=== PATIENT | female | born 1970 | race Caucasian/White ===

== ENCOUNTER → 2017-07-01 | Outpatient (CLI) | payer BC ==
--- NOTE | 2017-07-01 11:47 | MR ---
EXAMINATION TYPE: MR knee LT wo con DATE OF EXAM: 07/01/2017 COMPARISON: NONE HISTORY: Left knee pain TECHNIQUE: Multiplanar, multisequence imaging of the left knee is performed without IV contrast. FINDINGS: MEDIAL MENISCUS: Linear tear posterior horn medial meniscus LATERAL MENISCUS: Anterior and posterior horns are intact without tear. CRUCIATE LIGAMENTS: The anterior and posterior cruciate ligaments are intact and unremarkable. COLLATERAL LIGAMENTS: The medial collateral ligament and lateral collateral ligament complex are inta ct and unremarkable. EXTENSOR MECHANISM: Visualized quadriceps and patellar tendons are intact. EFFUSION: No significant suprapatellar joint effusion. POPLITEAL CYST: There is a 1 x 0.8 x 3.4 cm popliteal fossa cyst. TRICOMPARTMENT SPACES: Joint spaces preserved. Cartilage preserved. BONE MARROW SIGNAL: No focal abnormal marrow signal is appreciated. IMPRESSION: 1. Posterior horn medial meniscal tear 2. 1 x 3.4 cm popliteal fossa cyst
== END | disposition home or self-care (01) ==
LOC: RADMRIMAIN 10:41
PROVIDERS: ATTEND Orthopaedic Surgery
DX: S83.242A Other tear of medial meniscus, current injury, left knee, initial encounter (principal); M71.22 Synovial cyst of popliteal space [Baker], left knee

== ENCOUNTER → 2017-09-17 | Outpatient (CLI) | payer BC ==
--- NOTE | 2017-09-23 13:02 | MM ---
Reason for exam: screening (asymptomatic). Last mammogram was performed 1 year and 1 month ago. History: Patient is postmenopausal and has history of other cancer at age 41. Family history of breast cancer in maternal aunt at age 64. Benign excisional biopsy of the left breast, 1987. Benign excisional biopsy of the left breast, 1986. Physical Findings: A clinical breast exam by your physician is recommended on an annual basis and results should be correlated with mammographic findings. MG 3D Screening Mammo W/Cad Bilateral CC and MLO view(s) were taken. Prior study comparison: August 17, 2016, bilateral MG 3d screening mammo w/cad. August 15, 2015, bilateral MG 3d screening mammo w/cad. The breast tissue is heterogeneously dense. This may lower the sensitivity of mammography. No significant changes when compared with prior studies. ASSESSMENT: Negative, BI-RAD 1 RECOMMENDATION: Routine screening mammogram of both breasts in 1 year.
== END | disposition home or self-care (01) ==
LOC: RADMAMWWP 15:40
PROVIDERS: ATTEND Family Medicine
DX: Z12.31 Encounter for screening mammogram for malignant neoplasm of breast (principal)
CPT/HCPCS: 77063; G0202

== ENCOUNTER → 2017-10-02 | Outpatient (CLI) | payer BC ==
[2017-10-02 11:26] LABS: Basophils % (A) 1 %; Eosinophils # (A) 0.1 k/uL (0-0.7); Eosinophils % (A) 2 %; HCT 38.9 % (34.0-46.0); HGB 11.8 gm/dL (11.4-16.0); Hypochromasia Slight; Lymphocytes # (A) 1.3 k/uL (1.0-4.8); Lymphocytes % (A) 42 %; MCH 29.2 pg (25.0-35.0); MCHC 30.2 g/dL (31.0-37.0); MCV 96.6 fL (80.0-100.0); Mean Platelet Volume 8.2; Monocytes # (A) 0.2 k/uL (0-1.0); Monocytes % (A) 7 %; Neutrophils # (A) 1.4 k/uL (1.3-7.7); Neutrophils % (A) 46 %; Platelet Count 295 k/uL (150-450); RBC 4.03 m/uL (3.80-5.40); RDW 15.1 % (11.5-15.5); WBC 3.2 k/uL (3.8-10.6)
[2017-10-02 11:33] LABS: Potassium 4.4 mmol/L (3.5-5.1)
== END | disposition home or self-care (01) ==
LOC: LABPAT 10:41
PROVIDERS: ATTEND Orthopaedic Surgery
DX: Z01.812 Encounter for preprocedural laboratory examination (principal); M23.92 Unspecified internal derangement of left knee
CPT/HCPCS: 36415; 80051; 85025

== ENCOUNTER 2017-10-06 08:29 | Day surgery (SDC) | payer BC ==
[2017-09-29 22:57] VITALS: BMI 18.1
--- NOTE | 2017-10-05 11:35 | HP ---
HISTORY AND PHYSICAL REASON FOR ADMISSION: Surgery is scheduled for 10/06/2017 HISTORY OF PRESENT ILLNESS: Radha Canela is a 47-year-old patient seen with progressive left knee pain. We discussed options regarding treatment. She elected to proceed with arthroscopy. Consent regarding procedure was obtained. PAST MEDICAL HISTORY: Noncontributory. PAST SURGICAL HISTORY: D and C, tubal ligation, herniorrhaphy, bladder suspension surgery. DAILY MEDICATIONS: Aleve. ALLERGIES: IBUPROFEN. IODINE. SOCIAL HISTORY: Patient denies current tobacco use. PHYSICAL EXAMINATION: Evaluation of left knee range of motion is -2/3 to 120 degrees. Mild intra-articular effusion. Tenderness along the medial joint line. Positive medial Leydi's. Crepitus along the patellofemoral compartment. Range of motion. Ligaments stable. Hip rotation without pain. Distal neurovascular exam intact. RADIOGRAPHS: Radiographs of the left knee revealed mild osteoarthritis. MRI of the left knee revealed medial meniscal tear. IMPRESSION: Internal derangement, left knee with medial meniscal tear. PLAN: Left knee arthroscopy with partial meniscectomy and debridement. MMODL / IJN: [id number] /
[~2017-10-06 08:29] MED LIST: DEXAMETHASONE SOD PHOSPHATE 10 MG/ML 1 ML VIAL IV ONE; HYDROmorphone 0.5 MG/0.5 ML SYRINGE IVP PRN; LACTATED RINGERS 1,000 ML IV SCH; MIDAZOLAM 2 MG/2 ML VIAL IV PRN; ONDANSETRON 4 MG/2 ML VIAL IVP ONE; ceFAZolin 1,000 MG in DEXTROSE/WATER 1 50ML.BAG IV ONE
[2017-10-06] MEDS ORDERED: LIDOCAINE 1% 20 ML VIAL (10MG/ML) FOR IV START INTRADERMA ONE (08:58)
[2017-10-06] MEDS ORDERED: MIDAZOLAM 2 MG/2 ML VIAL ONE (09:48)
[2017-10-06] MEDS ORDERED: PROPOFOL 10 MG/ML 20 ML VIAL IV ONE (09:48)
[2017-10-06] MEDS ORDERED: LIDOCAINE 1% INJ 10MG/ML (20 ML MDV) ONE (09:48)
[2017-10-06] MEDS ORDERED: fentaNYL (PF) 50 MCG/ML 2 ML AMP ONE (09:48)
[2017-10-06] MEDS ORDERED: BUPIVACAINE (PF) 0.25% 30 ML VIAL INTRAARTIC ONE (09:48)
--- NOTE | 2017-10-06 10:44 | P.OP ---
Date of Procedure: 10/06/17 Preoperative Diagnosis: Internal derangement left knee Postoperative Diagnosis: 1. Tear medial and lateral meniscus left knee 2. Grade 2/3 chondromalacia medial femoral condyle left knee 3. Medial plica left knee 4. Reactive synovitis medial and suprapatellar compartments left knee Procedure(s) Performed: 1. Arthroscopic partial medial and lateral meniscectomy left knee 2. Arthroscopic chondroplasty medial femoral condyle left knee 3. Arthroscopic resection medial plica left knee 4. Arthroscopic partial synovectomy medial and suprapatellar compartments left knee Anesthesia: MIANA, local Surgeon: Lyndon Villeda Estimated Blood Loss (ml): 10 Pathology: none sent Condition: stable Disposition: PACU Indications for Procedure: 47-year-old patient seen with progressive left knee pain. After treatment options were discussed, she elected to proceed with arthroscopy. Operative Findings: See description of procedure Description of Procedure: Patient was taken to the operative suite. Patient underwent a general anesthetic by the department of anesthesia. Patient was given preoperative antibiotics. The left lower extremity was placed in a well-padded arthroscopic leg reyes. The left leg was prepped and draped in the normal sterile orthopedic fashion. A lateral parapatellar and suprapatellar incision was made. Trochars were inserted. Arthroscopy was initiated. Suprapatellar pouch revealed diffuse thick reactive synovitis. The patellofemoral joint appeared to articulate congruently. There was mild grade 1 chondromalacia with no osteochondral tears present. The scope was guided into the medial gutter. There was a medial plica which did seem to impinge along the medial femoral condyle with range of motion. No loose bodies.. The scope was then guided into the medial compartment. A medial parapatellar incision was made. Trocar inserted followed by probe. There was a complex tear posterior horn medial meniscus. There was an area of grade 2/3 chondromalacia medial femoral condyle with osteochondral flap tears present. There was thick reactive synovitis anteriorly. No loose bodies. I performed a partial medial meniscectomy down to stable tissue. I performed a chondroplasty of the medial femoral condyle down to stable tissue and partial synovectomy. The residual meniscus was stable. The residual osteochondral surface was stable. Scope and probe were then guided into the intercondylar notch. Cruciates were identified, probed and found to be stable. The scope and probe were then guided into lateral compartment. There was mild superficial tearing mid body lateral meniscus. No chondromalacia. No reactive synovitis. No loose bodies. I performed a partial lateral meniscectomy down to stable tissue. The residual meniscus was stable. The scope was in guided back into the suprapatellar compartment. I introduced a motorized shaver into the super patellar compartment. I debrided some piecemeal fragments of meniscus I encountered. I debrided that medial plica. I performed a partial synovectomy. Shaver was removed. Instruments were now removed from the joint. The joint was infiltrated with .25% Marcaine. Steri-Strips were applied to the portal sites. Sterile dressings were applied. The patient was placed into a ARDEN hose. No tourniquet was utilized. The patient was awakened, transferred to a bed and taken to recovery stable satisfactory condition.
[2017-10-06 10:51] VITALS: TEMP 98.7
[2017-10-06] MEDS ORDERED: ONDANSETRON 4 MG/2 ML VIAL IVP ONE (10:58)
[2017-10-06] MEDS ORDERED: LACTATED RINGERS 1,000 ML IV ONE (11:34)
[2017-10-06 11:36] VITALS: RESP 16
[2017-10-06] MEDS ORDERED: HYDROcodone/APAP 5-325MG 1 EACH TAB PO ONE (13:20)
[2017-10-06 13:51] VITALS: BP 106/67; PULSE 56
== END 2017-10-06 14:30 | disposition home or self-care (01) ==
LOC: OR 08:29
PROVIDERS: ATTEND Orthopaedic Surgery
DX: S83.242A Other tear of medial meniscus, current injury, left knee, initial encounter (principal); S83.282A Other tear of lateral meniscus, current injury, left knee, initial encounter; X58.XXXA Exposure to other specified factors, initial encounter; M94.262 Chondromalacia, left knee; M67.52 Plica syndrome, left knee; M65.862 Other synovitis and tenosynovitis, left lower leg; Z79.1 Long term (current) use of non-steroidal anti-inflammatories (NSAID); Z79.899 Other long term (current) drug therapy; Z88.6 Allergy status to analgesic agent; Z91.041 Radiographic dye allergy status
CPT/HCPCS: 29880; J2250; J1100; J2405; J2001; J3010; J0690; J2704; J1170

== ENCOUNTER → 2018-07-15 | Outpatient (CLI) | payer BC ==
--- NOTE | 2018-07-15 12:15 | MR ---
EXAMINATION TYPE: MR shoulder RT wo con DATE OF EXAM: 07/15/2018 COMPARISON: Prior plain film 06/21/2018, prior shoulder MRI 09/02/2015 HISTORY: Right shoulder pain TECHNIQUE: Multiplanar, multisequence imaging of the right shoulder is performed without contrast. FINDINGS: Rotator Cuff: There is some attenuation of the rotator cuff, bursal surface irregularity is noted at the infraspinatus tendon insertion, coronal image 18 of the fat-sat data set, image 24 of the sagitta l fat saturation images. Increased signal within the tendon is compatible with tendinosis. No chris t hrough and through tear is noted however. Abnormal increased signal present within the infraspinatus insertion level possibly related to prior surgery. Acromioclavicular Joint: Prior resection of distal clavicle is noted as on plain film. Glenohumeral Joint: Intact Labrum: The labrum appears grossly intact given limitation of non-arthrogram study. Biceps Tendon: Long head of biceps tendon shows a normal position as on prior exam. Biceps anchor is less well-defined on today's exam however. Bone marrow signal: There is a screw tract along the greater tuberosity level extending into the carlin ral head along the posterior lateral cortex, some marrow signal changes may be postoperative, possibl e pseudocyst formation at the humeral head posteriorly. Other: No sizable effusion. Suspect a distal acromial spur. IMPRESSION: Postoperative changes, screw tract is noted at the expected insertion of infraspinatus tendon repair. Suspect tendinosis, possible partial thickness tear of the rotator cuff tendon as described. Suspect small distal acromial spur. Correlate for impingement.
== END ==
LOC: RADMRIMAIN 07:09
PROVIDERS: ATTEND Orthopaedic Surgery
DX: M25.511 Pain in right shoulder (principal); Z98.890 Other specified postprocedural states

== ENCOUNTER → 2018-09-19 | Outpatient (CLI) | payer BC ==
--- NOTE | 2018-09-22 10:34 | MM ---
Reason for exam: screening (asymptomatic). Last mammogram was performed 1 year ago. History: Patient is postmenopausal and has history of other cancer at age 41. Family history of breast cancer in maternal aunt at age 64. Benign excisional biopsy of the left breast, 1987. Benign excisional biopsy of the left breast, 1986. Physical Findings: A clinical breast exam by your physician is recommended on an annual basis and results should be correlated with mammographic findings. MG 3D Screening Mammo W/Cad Bilateral CC and MLO view(s) were taken. Prior study comparison: September 18, 2017, bilateral MG 3d screening mammo w/cad. August 17, 2016, bilateral MG 3d screening mammo w/cad. The breast tissue is heterogeneously dense. This may lower the sensitivity of mammography. Focal asymmetry posterior right CC. No significant changes when compared with prior studies. ASSESSMENT: Benign, BI-RAD 2 RECOMMENDATION: Routine screening mammogram of both breasts in 1 year.
== END | disposition home or self-care (01) ==
LOC: RADMAMWWP 06:57
PROVIDERS: ATTEND Family Medicine
DX: Z12.31 Encounter for screening mammogram for malignant neoplasm of breast (principal)
CPT/HCPCS: 77063; 77067

== ENCOUNTER → 2018-12-07 | Outpatient (CLI) | payer BC ==
--- NOTE | 2018-12-07 16:12 | US ---
EXAMINATION TYPE: US extremity nonvasculr ltd LT DATE OF EXAM: 12/07/2018 COMPARISON: Left knee MRI July 01, 2017 CLINICAL HISTORY: Bakers Cyst M17.22. Left knee pain Left popliteal fossa: 3.4 x 1.5 x 1.7cm hypoechoic complex collection seen medial to vessels IMPRESSION: Redemonstration of small to moderate-sized popliteal/Mortensen's cyst not significantly chiang ged in size from 2017 MRI.
== END ==
LOC: RADUSWWP 15:43
PROVIDERS: ATTEND Surgery Plastic and Reconstructive Surgery
DX: M71.22 Synovial cyst of popliteal space [Baker], left knee (principal)

== ENCOUNTER → 2019-01-13 | Outpatient (CLI) | payer BC ==
--- NOTE | 2019-01-13 22:05 | MR ---
EXAMINATION TYPE: MR knee LT wo con DATE OF EXAM: 01/13/2019 COMPARISON: None HISTORY: Lt knee pain TECHNIQUE: Multiplanar, multisequence images of the knee is performed without IV contrast. FINDINGS: MEDIAL MENISCUS: Oblique tear posterior horn medial meniscus. Anterior horn is unremarkable. LATERAL MENISCUS: Anterior and posterior horns are intact without tear. CRUCIATE LIGAMENTS: The anterior and posterior cruciate ligaments are intact and unremarkable. COLLATERAL LIGAMENTS: The medial collateral ligament and lateral collateral ligament complex are inta ct and unremarkable. EXTENSOR MECHANISM: Visualized quadriceps and patellar tendons are intact. EFFUSION: No significant suprapatellar joint effusion. POPLITEAL CYST: Mortensen's cyst measuring 4.8 cm x 1.4 cm. TRICOMPARTMENT SPACES: Intact CARTILAGE: Intact BONE MARROW SIGNAL: No focal abnormal marrow signal is appreciated. OTHER: No additional significant abnormality is appreciated. IMPRESSION: 1.Oblique tear posterior horn medial meniscus. 2. Mortensen's cyst
== END | disposition home or self-care (01) ==
LOC: RADMRIMAIN 20:09
PROVIDERS: ATTEND Orthopaedic Surgery
DX: S83.242A Other tear of medial meniscus, current injury, left knee, initial encounter (principal); M71.22 Synovial cyst of popliteal space [Baker], left knee

== ENCOUNTER 2019-04-06 11:53 | Day surgery (SDC) | payer BC, OTHER ==
[2019-04-04 15:09] VITALS: BMI 20.3
--- NOTE | 2019-04-05 17:44 | HP ---
HISTORY AND PHYSICAL DATE OF SURGERY: 04/06/2019 Radha Canela is a 48-year-old patient seen with progressive left knee pain. We discussed treatment options with her. She elected to proceed with left knee arthroscopy. Consent was obtained. PAST MEDICAL HISTORY: Noncontributory. PAST SURGICAL HISTORY: 1. D&C. 2. Tubal ligation. 3. Herniorrhaphy. 4. Knee arthroscopy. DAILY MEDICATIONS: Excedrin as needed. ALLERGIES: IBUPROFEN and IODINE. SOCIAL HISTORY: She denies tobacco use. PHYSICAL EVALUATION OF THE LEFT KNEE: Her range of motion is 0 to 130 degrees. There is a mild effusion present. Tenderness, medial joint line. Positive medial Leydi's. Ligaments stable. Hip rotation without pain. Distal neurovascular exam intact. IMAGING: MRI of the left knee shows medial meniscal tear. IMPRESSION: Internal derangement of left knee with medial meniscal tear. PLAN: Left knee arthroscopy with partial meniscectomy and debridement. MMODL / IJN: [id number] /
[~2019-04-06 11:53] MED LIST changes: -HYDROmorphone 0.5 MG/0.5 ML SYRINGE IVP PRN; +KETOROLAC 30 MG/ML 1 ML VIAL IVP SCH; +LIDOCAINE 1% 20 ML VIAL (10MG/ML) FOR IV START INTRADERMA PRN; -MIDAZOLAM 2 MG/2 ML VIAL IV PRN; +ONDANSETRON 4 MG/2 ML VIAL IVP PRN; +SCOPOLAMINE 1.5MG/72HR PATCH TRANSDERM ONE; -ceFAZolin 1,000 MG in DEXTROSE/WATER 1 50ML.BAG IV ONE
[2019-04-06] MEDS ORDERED: MIDAZOLAM (PF) 2 MG/2 ML VIAL IVP ONE (13:31)
[2019-04-06] MEDS ORDERED: BUPIVACAINE (PF) 0.25% 30 ML VIAL INTRAARTIC ONE (14:05)
[2019-04-06] MEDS ORDERED: PROPOFOL 10 MG/ML 20 ML VIAL IV ONE (14:07)
[2019-04-06] MEDS ORDERED: fentaNYL (PF) 50 MCG/ML 2 ML AMP ONE (14:07)
[2019-04-06] MEDS ORDERED: LIDOCAINE 1% INJ 10MG/ML (20 ML MDV) ONE (14:07)
--- NOTE | 2019-04-06 14:56 | P.OP ---
Date of Procedure: 04/06/19 Preoperative Diagnosis: Internal derangement left knee Postoperative Diagnosis: 1. Tear medial meniscus left knee 2. Grade 2/3 chondromalacia medial femoral condyle left knee 3. Reactive synovitis medial, lateral and suprapatellar compartments left knee Procedure(s) Performed: 1. Arthroscopic partial medial meniscectomy left knee 2. Arthroscopic chondroplasty medial femoral condyle left knee 3. Arthroscopic partial synovectomy medial, lateral and suprapatellar compartments left knee Anesthesia: GETA, local Surgeon: Lyndon Villeda Estimated Blood Loss (ml): 10 Pathology: none sent Condition: stable Disposition: PACU Indications for Procedure: 48-year-old patient seen with progressive left knee pain. After having treatment options discussed, she elected to proceed with arthroscopy. Operative Findings: See description of procedure Description of Procedure: Patient was taken to the operative suite. Patient underwent a general anesthetic by the department of anesthesia. Patient was given preoperative anti biotics. The left lower extremity was placed in a well-padded arthroscopic leg reyes. The left leg was prepped and draped in the normal sterile orthopedic fashion. A lateral parapatellar and suprapatellar incision was made. Trochars were inserted. Arthroscopy was initiated. Suprapatellar pouch revealed diffuse thick reactive synovitis. The patellofemoral joint appeared to articulate congruently. There was grade 1/2 chondromalacia of the patella with no osteochondral tears.. The scope was guided into the medial gutter. No loose bodies or plica were identified. The scope was then guided into the medial compartment. A medial parapatellar incision was made. Trocar inserted followed by probe. There was a radial tear involving the posterior horn medial meniscus. There was thick reactive synovitis anteriorly. There were grade 2/3 chondromalacia changes of the medial femoral condyle with osteochondral flap tears present. I performed a partial medial meniscectomy down to stable tissue. I performed a chondroplasty of the medial femoral condyle down to stable tissue. I performed a partial synovectomy decompressing the reactive synovitis. The residual meniscus was stable. The residual osteochondral surface of the medial femoral condyle was stable with again grade 2/3 chondromalacia changes noted. There was good decompression of the synovitis. Scope and probe were th en guided into the intercondylar notch. Cruciates were identified, probed and found to be stable. The scope and probe were then guided into lateral compartment. Lateral meniscus was probed and found to be stable. There was no significant chondromalacia. There was thick reactive synovitis anteriorly. Motorize shaver was introduced. I performed a partial synovectomy decompressing reactive synovitis lateral compartment. The shaver was removed. It was good decompression of the synovitis. The scope was in guided back into the suprapatellar compartment. I introduced a motorized shaver into the super patellar compartment. I debrided some piecemeal fragments of meniscus I encountered. I performed a partial synovectomy decompressing the reactive synovitis. Shaver was removed. I took one more look on the entire knee, no residual debris. Instruments were now removed from the joint. The joint was infiltrated with .25% Marcaine. Steri-Strips were applied to the portal sites. Sterile dressings were applied. The patient was placed into a ARDEN hose. No tourniquet was utilized. The patient was awakened, transferred to a bed and taken to recovery stable satisfactory condition.
[2019-04-06 14:58] VITALS: TEMP 97.3
[2019-04-06] MEDS: HYDROmorphone 0.5 MG/0.5 ML SYRINGE IVP PRN ×2 (15:05→15:10)
[2019-04-06 16:09] VITALS: BP 135/50; PULSE 50; RESP 18
== END 2019-04-06 16:17 | disposition home or self-care (01) ==
LOC: OR 11:53
PROVIDERS: ATTEND Orthopaedic Surgery
DX: S83.242A Other tear of medial meniscus, current injury, left knee, initial encounter (principal); X58.XXXA Exposure to other specified factors, initial encounter; M94.262 Chondromalacia, left knee; M22.42 Chondromalacia patellae, left knee; M65.88 Other synovitis and tenosynovitis, other site; Z90.710 Acquired absence of both cervix and uterus; Z98.51 Tubal ligation status; Z79.82 Long term (current) use of aspirin; Z79.899 Other long term (current) drug therapy; Z88.6 Allergy status to analgesic agent; Z91.048 Other nonmedicinal substance allergy status
CPT/HCPCS: 29881; J1100; J2405; J0690; J2001; J3010; J2704; J1170; J2250

== ENCOUNTER → 2019-09-21 | Outpatient (CLI) | payer BC ==
--- NOTE | 2019-09-22 12:33 | MM ---
Reason for exam: screening (asymptomatic). Last mammogram was performed 1 year ago. History: Patient is postmenopausal and has history of other cancer at age 41. Family history of breast cancer in maternal aunt at age 64. Benign excisional biopsy of the left breast, 1987. Benign excisional biopsy of the left breast, 1986. Physical Findings: A clinical breast exam by your physician is recommended on an annual basis and results should be correlated with mammographic findings. MG 3D Screening Mammo W/Cad Bilateral CC and MLO view(s) were taken. Prior study comparison: September 19, 2018, bilateral MG 3d screening mammo w/cad. September 18, 2017, bilateral MG 3d screening mammo w/cad. There are scattered fibroglandular densities. There are benign appearing vascular calcifications in the right breast. Asymmetric breast tissue left upper breast, stable. There is no discrete abnormality. ASSESSMENT: Benign, BI-RAD 2 RECOMMENDATION: Routine screening mammogram of both breasts in 1 year.
== END | disposition home or self-care (01) ==
LOC: RADMAMWWP 09:56
PROVIDERS: ATTEND Family Medicine
DX: Z12.31 Encounter for screening mammogram for malignant neoplasm of breast (principal); Z80.3 Family history of malignant neoplasm of breast
CPT/HCPCS: 77063; 77067

== ENCOUNTER → 2019-11-23 | Outpatient (CLI) | payer BC ==
--- NOTE | 2019-11-23 14:01 | MR ---
EXAMINATION TYPE: MR shoulder RT wo con DATE OF EXAM: 11/23/2019 COMPARISON: 07/15/2018 HISTORY: Rt shoulder pain w/ hx of surgery Technique: Multiplanar, multiecho imaging on a 3.0 Hortencia magnet is performed through the shoulder. Findings: Long head of the biceps tendon is within the bicipital groove. No significant joint effusion is evident. Glenoid labrum as visualized on this noncontrast study escobar ears intact. Postsurgical changes are within the humeral head prior rotator cuff repair. Some subchon dral cyst formation near the insertion of the supraspinatus tendon as stable over the interval. Rotator cuff tendons are evaluated. There is some fluid type signal transversing the inferior portio n of the infraspinatus tendon communicating with the subdeltoid bursa. Small perforation of the infra spinatus tendon inferiorly may be present. No retraction is evident. This appears to be an interval c hange. There is fluid in the subdeltoid bursa. Very minimal fluid may be within the subacromial bursa . The acromioclavicular junction is mildly hypertrophied which can contribute to impingement syndrom e. This appears stable from comparison. IMPRESSIONS: 1. Perforation of the posterior inferior infraspinatus tendon with minimal fluid compatible small par tial tear. Some moderate tendinosis could be considered. 2. Postsurgical changes from prior rotator cuff tear repair.
== END | disposition home or self-care (01) ==
LOC: RADMRIMAIN 12:26
PROVIDERS: ATTEND Orthopaedic Surgery
DX: M25.511 Pain in right shoulder (principal); Z98.890 Other specified postprocedural states

== ENCOUNTER → 2019-11-28 | Outpatient (CLI) | payer BC ==
[2019-11-28 09:47] LABS: Basophils # (A) 0.1 k/uL (0-0.2); Basophils % (A) 1 %; Eosinophils # (A) 0.1 k/uL (0-0.7); Eosinophils % (A) 2 %; HCT 43.8 % (34.0-46.0); HGB 13.9 gm/dL (11.4-16.0); Lymphocytes # (A) 1.6 k/uL (1.0-4.8); Lymphocytes % (A) 31 %; MCH 29.7 pg (25.0-35.0); MCHC 31.7 g/dL (31.0-37.0); MCV 93.7 fL (80.0-100.0); Mean Platelet Volume 8.1; Monocytes # (A) 0.3 k/uL (0-1.0); Monocytes % (A) 5 %; Neutrophils # (A) 3.1 k/uL (1.3-7.7); Neutrophils % (A) 59 %; Platelet Count 295 k/uL (150-450); RBC 4.68 m/uL (3.80-5.40); RDW 13.5 % (11.5-15.5); WBC 5.3 k/uL (3.8-10.6)
[2019-11-28 10:04] LABS: Potassium 5.5 mmol/L (3.5-5.1)
== END | disposition home or self-care (01) ==
LOC: LABPAT 08:48
PROVIDERS: ATTEND Orthopaedic Surgery
DX: Z01.812 Encounter for preprocedural laboratory examination (principal); M75.41 Impingement syndrome of right shoulder
CPT/HCPCS: 36415; 80051; 85025

== ENCOUNTER → 2020-02-01 | Outpatient (CLI) | payer BC | END | disposition home or self-care (01) | LOC: LABWHC1 07:04 | PROVIDERS: ATTEND Orthopaedic Surgery | DX: Z53.9 Procedure and treatment not carried out, unspecified reason (principal) ==

== ENCOUNTER 2020-02-02 10:29 | Day surgery (SDC) | payer BC ==
[2020-02-01 12:34] VITALS: BMI 22.2
--- NOTE | 2020-02-02 09:09 | HP ---
HISTORY AND PHYSICAL DATE OF SERVICE: 02/02/2020 Radha Canela is a 49-year-old patient seen with progressive right shoulder pain. We discussed options for treatment. She elected to proceed with arthroscopy. Consent was obtained. PAST MEDICAL HISTORY: Noncontributory. PAST SURGICAL HISTORY: D and C, tubal ligation, bladder suspension surgery, left knee arthroscopy, right shoulder arthroscopy. DAILY MEDICATIONS: Vyvanse. ALLERGIES: IBUPROFEN, IODINE. SOCIAL HISTORY: She denies tobacco use. PHYSICAL EVALUATION OF THE RIGHT SHOULDER: Flexion is 90 degrees, abduction is 60 degrees, external rotation is 20 degrees with weakness and pain. There is tenderness along the anterolateral acromion rotator cuff insertion site. Impingement is positive at 90. Drop-arm sign positive. Distal neurovascular exam is intact. RADIOGRAPHS: Obtained of the right shoulder revealing some cystic changes of the tuberosity. Right shoulder MRI revealed infraspinatus rotator cuff tendon tear. IMPRESSION: Right shoulder impingement with rotator cuff tear. PLAN: Right shoulder arthroscopy, subacromial decompression, arthroscopic rotator cuff repair and debridement. MMODL / IJN: [id number] /
[~2020-02-02 10:29] MED LIST changes: +HYDROmorphone 0.5 MG/0.5 ML SYRINGE IVP PRN; -KETOROLAC 30 MG/ML 1 ML VIAL IVP SCH; -LACTATED RINGERS 1,000 ML IV SCH; +LIDOCAINE 1% (10MG/ML) FOR IV START INTRADERMA PRN; -LIDOCAINE 1% 20 ML VIAL (10MG/ML) FOR IV START INTRADERMA PRN; -ONDANSETRON 4 MG/2 ML VIAL IVP PRN; -SCOPOLAMINE 1.5MG/72HR PATCH TRANSDERM ONE
[2020-02-02] MEDS: LACTATED RINGERS 1,000 ML IV SCH ×2 (10:55→11:30)
[2020-02-02 11:34] VITALS: RESP 16
[2020-02-02 11:37] LABS: Basophils # (A) 0.1 k/uL (0-0.2); Basophils % (A) 1 %; Eosinophils # (A) 0.2 k/uL (0-0.7); Eosinophils % (A) 3 %; HCT 41.7 % (34.0-46.0); HGB 13.8 gm/dL (11.4-16.0); Lymphocytes # (A) 1.6 k/uL (1.0-4.8); Lymphocytes % (A) 27 %; MCH 30.6 pg (25.0-35.0); MCHC 33.1 g/dL (31.0-37.0); MCV 92.5 fL (80.0-100.0); Mean Platelet Volume 7.8; Monocytes # (A) 0.3 k/uL (0-1.0); Monocytes % (A) 5 %; Neutrophils # (A) 3.7 k/uL (1.3-7.7); Neutrophils % (A) 62 %; Platelet Count 348 k/uL (150-450); RBC 4.51 m/uL (3.80-5.40); RDW 13.6 % (11.5-15.5)
[2020-02-02 11:51] LABS: African American GFR (CKD) >90 (>60 ml/min/1.73 sqM); Anion Gap 10 mmol/L; Blood Urea Nitrogen 15 mg/dL (7-17); Calcium 9.4 mg/dL (8.4-10.2); Carbon Dioxide 24 mmol/L (22-30); Chloride 104 mmol/L (98-107); Glucose 86 mg/dL (74-99); Non-African American GFR(CKD) >90 (>60 ml/min/1.73 sqM); Sodium 138 mmol/L (137-145)
[2020-02-02 11:53] LABS: Potassium 4.7 mmol/L (3.5-5.1)
[2020-02-02] MEDS ORDERED: MIDAZOLAM 2 MG/2 ML VIAL IVP ONE (12:16)
[2020-02-02] MEDS ORDERED: fentaNYL (PF) 50 MCG/ML 2 ML AMP IVP ONE (12:16)
--- NOTE | 2020-02-02 12:47 | P.ANPRN ---
Procedure Note - Anesthesia - Nerve Block Performed Right Interscalene Single Time Out Performed: Yes ([id number]) Date of Procedure: 02/02/20 Procedure Start Time: 12:16 Procedure Stop Time: 12:21 Location of Patient: PreOp Indication: Acute Post-Operative Pain, Requested by Surgeon Specifically requested for management of pain by DrJuan: Lyndon Villeda Sedation Type: Sedate with meaningful contact maintained Preparation: Sterile Prep Position: Supine Catheter: None Needle Types: Pajunk Needle Gauge: 21 Ultrasound used to visualize needle placement: Yes Ultrasound used to observe medication spread: Yes Injectate: Other (see comment) (Lido 2% with epi 15cc Ropi 0.5% 15cc) Blood Aspirated: No Pain Paresthesia on Injection Noted: No Resistance on Injection: Normal Image Stored and Saved: Yes Events: Uneventful and Well Tolerated
[2020-02-02] MEDS ORDERED: PROPOFOL 10 MG/ML 20 ML VIAL IV ONE (13:08)
[2020-02-02] MEDS ORDERED: LIDOCAINE 1% INJ 10MG/ML (20 ML MDV) ONE (13:08)
[2020-02-02] MEDS ORDERED: PHENYLEPHRINE-0.9% NACL SYG 1 MG/10 ML SYRINGE ONE (13:08)
[2020-02-02] MEDS ORDERED: SUCCINYLCHOLINE CHLORIDE 100 MG/5 ML SYR IV ONE (13:08)
[2020-02-02] MEDS ORDERED: MIDAZOLAM 2 MG/2 ML VIAL ONE (13:08)
[2020-02-02] MEDS ORDERED: fentaNYL (PF) 50 MCG/ML 2 ML AMP ONE (13:08)
[2020-02-02] MEDS ORDERED: ROPIVACAINE 5 MG/ML 30 ML VIAL ONE (13:08)
[2020-02-02] MEDS ORDERED: LIDOCAINE 2%-EPI 1:100,000 20 ML VIAL ONE (13:08)
--- NOTE | 2020-02-02 14:46 | P.OP ---
Date of Procedure: 02/02/20 Preoperative Diagnosis: Right shoulder impingement Postoperative Diagnosis: 1. Right shoulder rotator cuff tear 2. Right shoulder impingement 3. Right shoulder labral tear Procedure(s) Performed: 1. Right shoulder arthroscopic rotator cuff repair 2. Right shoulder arthroscopic subacromial decompression 3. Right shoulder arthroscopic debridement labral tear Implants: 15.5 Arthrex swivel lock anchor Anesthesia: GETA, regional (Interscalene block) Surgeon: Lyndon Villeda Director Of Marketing [employer] #1: Saman Zapata Estimated Blood Loss (ml): 5 Pathology: none sent Condition: stable Disposition: PACU Indications for Procedure: 49-year-old patient seen with progressive right shoulder pain. After treatment options were discussed she elected to proceed with arthroscopy. This procedure had been previously rescheduled several times secondary to Covid 19 Operative Findings: See description of procedure Description of Procedure: Patient underwent an interscalene block by department of anesthesia. The patient was then taken to the operative suite. The patient underwent a general anesthetic by the department of anesthesia. The patient was placed into a lateral position and secured. There was appropriate padding of the bony prominence. Right shoulder was then prepped and draped in normal sterile orthopedic fashion. We placed the extremity in 10 pounds of longitudinal traction. A posterior incision was now made for a posterior working portal site. The trocar and cannula were inserted into the glenohumeral joint. Arthroscopy was initiated. Spinal needle was now inserted anteriorly, to ascertain the anterior working portal site. An incision was now made in that area, a trocar was inserted followed by a probe. There was some superficial tearing of the s uperior labrum. The remaining labrum was stable. There were some grade 1 chondromalacia changes present. I debrided that superficial labral tear. The residual labrum was stable. Instruments were removed from glenohumeral joint. Utilizing the posterior working portal site, the trocar and cannula were inserted into the subacromial space. Arthroscopy initiated. I made an incision 2 fingerbreadths lateral to the acromion. I introduced my trocar followed by my ArthroCare ablator. I now began ablating thick subacromial bursal tissue, which exposed the undersurface of the anterior acromion. There was diminished subacromial space. There was a very prominent anterior acromion. A motorized bur was introduced and a subacromial decompression was performed. I also excised some osteophytes off the inferior aspect of the distal clavicle. The AC joint was visualized and noted to be fairly arthritic. The motorized bur was introduced in the anterior portal site and a Estuardo procedure was performed without difficulty, decompressing the AC joint nicely. I turned my attention to the rotator cuff. There was some tearing along the posterior aspect distal supraspinatus. There was thoroughly probed and it was a full-thickness perforation present. I debrided the margins of tendon getting down to stable tendon tissue. I abraded the footprint with a motorized bur. I passed 2 everted mattress sutures through good bites of rotator cuff tendon. I now punched a hole in the near the footprint for insertion of an anchor. We opened up a 5.5 Arthrex a lock anchor. All 4 limbs of suture were passed through the eyelet of the 5.5 anchor. The eyelet was introduced into pre-punch hole. Casimiro HOUSE tension all the sutures deployed the anchor compressing the tendon along the footprint very nicely. All residual suture limbs were now clipped. We had good compression of the tendon along the entire footprint. I injected 1 mL renyte intra-articular. Instruments now removed from the portal sites. All portal sites were approximated with nylon suture. Sterile dressings were applied followed by a shoulder sling. Saman HOUSE assisted in this complex case. The patient was awakened, transferred to a bed, and taken to recovery in stable condition.
[2020-02-02 14:47] VITALS: TEMP 96.9
[2020-02-02 16:06] VITALS: BP 131/74; PULSE 52
== END 2020-02-02 16:40 | disposition home or self-care (01) ==
LOC: OR 10:29
PROVIDERS: ATTEND Orthopaedic Surgery
DX: M75.41 Impingement syndrome of right shoulder (principal); M75.101 Unspecified rotator cuff tear or rupture of right shoulder, not specified as traumatic; S43.431A Superior glenoid labrum lesion of right shoulder, initial encounter; M25.711 Osteophyte, right shoulder; F90.9 Attention-deficit hyperactivity disorder, unspecified type; G43.909 Migraine, unspecified, not intractable, without status migrainosus; K90.0 Celiac disease; K86.81 Exocrine pancreatic insufficiency; Z11.59 Encounter for screening for other viral diseases; Z98.890 Other specified postprocedural states; Z98.51 Tubal ligation status; Z79.899 Other long term (current) drug therapy; Z88.6 Allergy status to analgesic agent; Z91.048 Other nonmedicinal substance allergy status; X58.XXXA Exposure to other specified factors, initial encounter
CPT/HCPCS: 29824; 29826; 29827; 64415; 76942; 80048; 85025; 87635; C1713; Q4212; J2250; J1100; J2405; J0690; J2001; J3010; J2795; J2370; J0330; J2704

== ENCOUNTER → 2020-11-21 | Outpatient (CLI) | payer BC ==
--- NOTE | 2020-11-21 14:17 | MR ---
EXAMINATION TYPE: MR knee LT wo con DATE OF EXAM: 11/21/2020 COMPARISON: Prior MRI left knee January 13, 2019 and older study July 01, 2017. Left knee x-ray Febru [id number] HISTORY: Pain in left knee and swelling on and off for 4 years. History of fall injury in the past. TECHNIQUE: Multiplanar, multisequence imaging of the left knee is performed without IV contrast. FINDINGS: MEDIAL MENISCUS: Anterior horn remains intact without tear. Persistent oblique signal posterior horn medial meniscus sagittal image 23 extending to articular surface LATERAL MENISCUS: Anterior and posterior horns remain intact without tear. CRUCIATE LIGAMENTS: The anterior and posterior cruciate ligaments are intact and unremarkable. COLLATERAL LIGAMENTS: The medial collateral ligament and lateral collateral ligament complex are inta ct and unremarkable. EXTENSOR MECHANISM: Visualized quadriceps and patellar tendons are intact. EFFUSION: No significant suprapatellar joint effusion. POPLITEAL CYST: Stable moderate size popliteal/sesay cyst sagittal image 20 at 4.8 cm long axis. TRICOMPARTMENT SPACES: Mild tricompartment joint space loss and spurring CARTILAGE: No significant chondromalacia patella. Tricompartment articular cartilage maintained. BONE MARROW SIGNAL: No focal abnormal marrow signal is appreciated. OTHER: No additional significant abnormality is appreciated. IMPRESSION: Full-thickness oblique tear posterior horn medial meniscus redemonstrated. Moderate sized popliteal cyst redemonstrated. Mild tricompartment degenerative changes redemonstrated. No significa nt change from prior MRI studies.
== END | disposition home or self-care (01) ==
LOC: RADMRIMAIN 12:57
PROVIDERS: ATTEND Orthopaedic Surgery
DX: S83.242A Other tear of medial meniscus, current injury, left knee, initial encounter (principal); M71.22 Synovial cyst of popliteal space [Baker], left knee; M17.12 Unilateral primary osteoarthritis, left knee

== ENCOUNTER → 2020-11-25 | Outpatient (CLI) | payer BC ==
--- NOTE | 2020-11-26 11:33 | MM ---
Reason for exam: screening (asymptomatic). Last mammogram was performed 1 year and 2 months ago. History: Patient is postmenopausal and has history of other cancer at age 41. Family history of breast cancer in maternal aunt at age 64. Benign excisional biopsy of the left breast, 1987. Benign excisional biopsy of the left breast, 1986. Took hormonal contraceptives for 3 years. Took estrogen for 6 months. Physical Findings: A clinical breast exam by your physician is recommended on an annual basis and results should be correlated with mammographic findings. MG 3D Screening Mammo W/Cad Bilateral CC and MLO view(s) were taken. Prior study comparison: September 21, 2019, bilateral MG 3d screening mammo w/cad. September 19, 2018, bilateral MG 3d screening mammo w/cad. There are scattered fibroglandular densities. There is chronic nodularity in the right breast anteriorly. No significant changes when compared with prior studies. ASSESSMENT: Negative, BI-RAD 1 RECOMMENDATION: Routine screening mammogram of both breasts in 1 year.
== END ==
LOC: RADMAMWWP 07:58
PROVIDERS: ATTEND Family Medicine
DX: Z12.31 Encounter for screening mammogram for malignant neoplasm of breast (principal); Z78.0 Asymptomatic menopausal state; Z80.3 Family history of malignant neoplasm of breast
CPT/HCPCS: 77063; 77067

== ENCOUNTER → 2020-12-04 | Outpatient (CLI) | payer BC ==
[2020-12-04 14:24] LABS: Basophils # (A) 0.1 k/uL (0-0.2); Basophils % (A) 1 %; Eosinophils # (A) 0.1 k/uL (0-0.7); Eosinophils % (A) 1 %; HCT 40.2 % (34.0-46.0); Lymphocytes # (A) 1.6 k/uL (1.0-4.8); Lymphocytes % (A) 28 %; MCH 29.2 pg (25.0-35.0); MCHC 32.4 g/dL (31.0-37.0); MCV 90.4 fL (80.0-100.0); Mean Platelet Volume 7.6; Monocytes # (A) 0.3 k/uL (0-1.0); Monocytes % (A) 5 %; Neutrophils # (A) 3.6 k/uL (1.3-7.7); Neutrophils % (A) 64 %; Platelet Count 307 k/uL (150-450); RBC 4.44 m/uL (3.80-5.40); RDW 14.5 % (11.5-15.5); WBC 5.7 k/uL (3.8-10.6)
[2020-12-04 14:27] LABS: Potassium 4.3 mmol/L (3.5-5.1)
== END | disposition home or self-care (01) ==
LOC: LABPAT 13:41
PROVIDERS: ATTEND Orthopaedic Surgery
DX: Z01.818 Encounter for other preprocedural examination (principal); M75.42 Impingement syndrome of left shoulder
CPT/HCPCS: 80051; 85025

== ENCOUNTER 2020-12-25 09:57 | Day surgery (SDC) | payer BC ==
[2020-12-23 09:39] VITALS: BMI 22.4
--- NOTE | 2020-12-24 22:05 | HP ---
HISTORY AND PHYSICAL DATE OF SURGERY: 12/25/2020 Radha Canela is a 50-year-old patient who was seen with progressive left knee pain. We discussed options for treatment. She elected to proceed with arthroscopy. Consent was obtained. PAST MEDICAL HISTORY: Noncontributory. PAST SURGICAL HISTORY: D and C, tubal ligation, hysterectomy, herniorrhaphy, bladder suspension surgery, knee arthroscopy, shoulder arthroscopy. DAILY MEDICATIONS: Vyvanse. ALLERGIES: IODINE and IBUPROFEN. SOCIAL HISTORY: She denies tobacco use. PHYSICAL EVALUATION OF THE LEFT KNEE: Her range of motion is zero to 130. There is a mild effusion. Tenderness along the medial joint line. Positive medial Leydi's. Patellar crepitus. Ligaments stable. Hip rotation without pain. Distal neurovascular exam is intact. RADIOGRAPHS: Left knee radiographs revealed mild to moderate osteoarthritic change. MRI of left knee revealed a medial meniscal tear, popliteal cyst. IMPRESSION: 1. Internal derangement of left knee with medial meniscal tear. 2. Left knee osteoarthritis. PLAN: Left knee arthroscopy with partial meniscectomy and debridement. MMODL / IJN: [id number] /
[~2020-12-25 09:57] MED LIST changes: -DEXAMETHASONE SOD PHOSPHATE 10 MG/ML 1 ML VIAL IV ONE; +LACTATED RINGERS 1,000 ML IV SCH; -LIDOCAINE 1% (10MG/ML) FOR IV START INTRADERMA PRN; +fentaNYL (PF) 50 MCG/ML 2 ML AMP IV PRN
[2020-12-25] MEDS ORDERED: LIDOCAINE 1% (10MG/ML) FOR IV START INTRADERMA ONE (10:42)
[2020-12-25] MEDS ORDERED: DEXAMETHASONE SOD PHOSPHATE 4 MG/ML 1 ML VIAL IVP ONE (10:43)
[2020-12-25] MEDS ORDERED: SCOPOLAMINE 1.5MG/72HR PATCH TRANSDERM ONE (10:43)
[2020-12-25] MEDS ORDERED: fentaNYL (PF) 50 MCG/ML 2 ML AMP ONE (11:33)
[2020-12-25] MEDS ORDERED: MIDAZOLAM 2 MG/2 ML VIAL ONE (11:33)
[2020-12-25] MEDS ORDERED: PROPOFOL 10 MG/ML 20 ML VIAL IV ONE (11:33)
[2020-12-25] MEDS ORDERED: LIDOCAINE 1% INJ 10MG/ML (20 ML MDV) ONE (11:33)
[2020-12-25] MEDS ORDERED: BUPIVACAINE (PF) 0.25% 30 ML VIAL SQ ONE ×2 (11:37→12:14)
--- NOTE | 2020-12-25 12:31 | P.OP ---
Date of Procedure: 12/25/20 Preoperative Diagnosis: Internal derangement left knee Postoperative Diagnosis: 1. Tear medial meniscus left knee 2. Reactive synovitis medial, lateral and suprapatellar compartments left knee Procedure(s) Performed: 1. Arthroscopic partial medial meniscectomy left knee 2. Arthroscopic partial synovectomy medial, lateral and suprapatellar compartments left knee Anesthesia: MIANA, local Surgeon: Lyndon Villeda Estimated Blood Loss (ml): 7 Pathology: none sent Condition: stable Disposition: PACU Indications for Procedure: 50-year-old patient seen with progressive left knee pain. After treatment options were discussed, she elected to proceed with arthroscopy. Operative Findings: see description of procedure Description of Procedure: Patient was taken to the operative suite. Patient underwent a general anestheti c by the department of anesthesia. Patient was given preoperative antibiotics. The left lower extremity was placed in a well-padded arthroscopic leg reyes. The left leg was prepped and draped in the normal sterile orthopedic fashion. A lateral parapatellar and suprapatellar incision was made. Trochars were inserted. Arthroscopy was initiated. Suprapatellar pouch field diffuse thick reactive synovitis. The patellofemoral joint appeared to articulate congruently. There with grade 1 chondromalacia of the patella with no significant osteochondral tears present. The scope was guided into the medial gutter. No loose bodies or plica were identified The scope was then guided into the medial compartment. A medial parapatellar incision was made. Trocar inserted followed by probe. There was a radial tear involving the posterior horn medial meniscus. There were grade 2 chondromalacia changes of the medial femoral condyle with no osteochondral tears present. There was thick reactive synovitis anteriorly. I performed a partial medial meniscectomy getting down to stable meniscal tissue. I performed a partial synovectomy decompressing the thick reactive synovitis. The residual meniscus was probed and was found to be stable. There was good decompression of the synovitis. Scope and probe were then guided into the intercondylar notch. Cruciates were identified, probed and found to be stable. The scope and probe were then guided into lateral compartment. Lateral meniscus was probed and found to be stable. There was no significant chondromalacia. There was reactive synovitis anteriorly. I introduced a motorized shaver and performed a partial synovectomy. Shaver was removed. There was good decompression of the synovitis. The scope was in guided back into the suprapatellar compartment. Used a motorized shaver into the super patellar compartment. I performed a partial synovectomy decompressing the thick reactive synovitis within the suprapatellar compartment. Shaver was removed. There was good decompression of the synovitis. I now took one more look around the entire knee, no residual debris. Instruments were now removed from the joint. The joint was infiltrated with .25% Marcaine. Steri-Strips were applied to the portal sites. Sterile dressings were applied. The patient was placed into a ARDEN hose. No tourniquet was utilized. The patient was awakened, transferred to a bed and taken to recovery stable satisfactory condition.
[2020-12-25 12:45] VITALS: TEMP 97
[2020-12-25 13:49] VITALS: RESP 16
[2020-12-25 14:30] VITALS: BP 117/64; PULSE 53
== END 2020-12-25 14:57 | disposition home or self-care (01) ==
LOC: OR 09:57
PROVIDERS: ATTEND Orthopaedic Surgery
DX: M23.204 Derangement of unspecified medial meniscus due to old tear or injury, left knee (principal); M65.862 Other synovitis and tenosynovitis, left lower leg; M22.42 Chondromalacia patellae, left knee; Z98.51 Tubal ligation status; Z90.710 Acquired absence of both cervix and uterus; Z98.890 Other specified postprocedural states; Z79.899 Other long term (current) drug therapy; Z88.6 Allergy status to analgesic agent; Z91.048 Other nonmedicinal substance allergy status
CPT/HCPCS: 29881; J2250; J1100; J2405; J0690; J2001; J3010; J2704

== ENCOUNTER 2021-08-12 15:06 | Emergency (ER) | payer BC ==
[2021-08-12 16:46] VITALS: BP 142/80; PULSE 71; RESP 18; TEMP 98.3
--- NOTE | 2021-08-12 18:49 | XR ---
EXAMINATION TYPE: XR foot complete LT DATE OF EXAM: 08/12/2021 CLINICAL HISTORY: injury/pain. TECHNIQUE: Frontal, lateral and oblique images of the left foot are obtained. COMPARISON: None FINDINGS: There is a tiny osseous fragment at the medial aspect of the fifth metatarsal head on front al view. No dislocation. The joint spaces appear within normal limits. Normal osseous mineralizatio n. The overlying soft tissue appears unremarkable. IMPRESSION: Tiny ossific density at the medial aspect of the fifth metatarsal head seen on single vie w. Differential includes tiny age-indeterminate fracture fragment. Recommend correlation with point t endereric.
--- NOTE | 2021-08-12 18:57 | ED ---
Lower Extremity Injury HPI - General Chief Complaint: Extremity Injury, Lower Stated Complaint: Foot injury Time Seen by Provider: 08/12/21 18:18 Source: patient, RN notes reviewed Mode of arrival: ambulatory Limitations: no limitations - History of Present Illness Initial Comments: 50-year-old female that presents to emergency department complaining of left foot/ankle pain. She notes that she injured it at work using a carol approximately a week ago. She notes that the swelling has come down and she is able to walk on it. She notes she was sent by her boss to get evaluated before she can return to work. Patient was otherwise well-appearing. She was in no apparent distress or pain. She noted that the only thing that bothered her was bearing weight for long periods of time. She denied any issues complaints. She denied chest pain short of breath headache nausea vomiting diarrhea constipation fever fatigue chills. - Related Data Home Medications Medication Instructions Recorded Confirmed Lisdexamfetamine Dimesylate 40 mg PO QAM 09/28/17 12/25/20 [Vyvanse] Acetaminophen Tab [Tylenol] 325 - 650 mg PO DIRECTED PRN 12/23/20 12/25/20 Previous Rx's Medication Instructions Recorded HYDROcodone/APAP 7.5-325MG [[place] 1 each PO Q6HR PRN #15 tab 12/25/20 7.5] Allergies Allergy/AdvReac Type Severity Reaction Status Date / Time gluten Allergy celiac Verified 08/12/21 16:43 disease ibuprofen [From Motrin] Allergy Anaphylaxis Verified 08/12/21 16:43 Iodinated Contrast Media Allergy Rash/Hives,states Verified 08/12/21 16:43 [Iodinated Contrast Media - "topical IV Dye] is ok" coconut Allergy Anaphylaxis Uncoded 08/12/21 16:43 Review of Systems ROS Statement: Those systems with pertinent positive or pertinent negative responses have been documented in the HPI. ROS Other: All systems not noted in ROS Statement are negative. Past Medical History Past Medical History: Osteoarthritis (OA) Additional Past Medical History / Comment(s): migraines (has daith piercing both ears), celiac disease, heart murmur. History of Any Multi-Drug Resistant Organisms: None Reported Past Surgical History: Bladder Surgery, Hernia Repair, Hysterectomy, Orthopedic Surgery, Tubal Ligation Additional Past Surgical History / Comment(s): repair of bladder after hysterectomy, D&C, cysts removed from left breast, cysts removed from both wrists, sinus surgery, cruz myringotomy, right rotator cuff repair x2. 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 Past Psychological History: ADD/ADHD Smoking Status: Never smoker Past Alcohol Use History: None Reported Past Drug Use History: None Reported - Past Family History Mother Family Medical History: No Reported History General Exam Limitations: no limitations General appearance: alert, in no apparent distress Head exam: Present: atraumatic, normocephalic, normal inspection Eye exam: Present: normal appearance, PERRL, EOMI. Absent: scleral icterus, conjunctival injection, periorbital swelling ENT exam: Present: normal exam, mucous membranes moist Neck exam: Present: normal inspection Respiratory exam: Present: normal lung sounds bilaterally. Absent: respiratory distress, wheezes, rales, rhonchi, stridor Cardiovascular Exam: Present: regular rate, normal rhythm, normal heart sounds. Absent: systolic murmur, diastolic murmur, rubs, gallop, clicks Left Ankle exam: Present: normal inspection, full ROM, tenderness (Lateral aspect inferior to the malleoli). Absent: swelling, abrasion, laceration, ecchymosis, deformity Foot/Toe exam: Present: normal inspection, full ROM. Absent: tenderness, swelling, abrasion, laceration Neurological exam: Present: alert, oriented X3 Psychiatric exam: Present: normal affect, normal mood Skin exam: Present: warm, dry, intact, normal color. Absent: rash Course Vital Signs 08/12/21 16:43 Temperature 98.3 F Pulse Rate 71 Respiratory 18 Rate Blood Pressure 142/80 O2 Sat by Pulse 98 Oximetry Medical Decision Making - Medical Decision Making 50-year-old female with left ankle/foot pain. X-ray of the left foot ordered. X-ray shows no acute fractures but does show a distal small bony fragment possible fracture fragment age undetermined. Patient declined pain medication at this time as it is tolerable. Case discussed with Dr. May, patient discharge home with follow-up primary care. - Radiology Data Radiology results: report reviewed, image reviewed X-ray left foot: Tiny ossific density at the medial aspect of the fifth metatarsal head seen on single view. Differential includes tiny age indeterminate fracture fragment. Recommend correlation with point tenderness. Disposition Clinical Impression: Left ankle sprain Disposition: HOME SELF-CARE Condition: Stable Instructions (If sedation given, give patient instructions): Ankle Sprain (ED) Additional Instructions: Please return to the Emergency Department if symptoms worsen or any other concerns. Follow-up with primary care 1-2 days. Continue to take Tylenol and Motrin as needed. Rest ice compress elevate. You are able to return to work with normal duties, use as tolerated. Is patient prescribed a controlled substance at d/c from ED?: No Referrals: Ravi Wild MD [Primary Care Provider] - 1-2 days Time of Disposition: 18:56
== END 2021-08-12 19:12 | disposition home or self-care (01) ==
LOC: EC 15:06
DX: S93.402A Sprain of unspecified ligament of left ankle, initial encounter (principal); M19.90 Unspecified osteoarthritis, unspecified site; F90.9 Attention-deficit hyperactivity disorder, unspecified type; Z88.6 Allergy status to analgesic agent; Z90.710 Acquired absence of both cervix and uterus; Z98.51 Tubal ligation status; X58.XXXA Exposure to other specified factors, initial encounter
CPT/HCPCS: 99283

== ENCOUNTER → 2021-12-16 | Outpatient (CLI) | payer BC ==
--- NOTE | 2021-12-17 08:22 | MM ---
Reason for exam: screening (asymptomatic). Last mammogram was performed 1 year and 1 month ago. History: Patient is postmenopausal and has history of other cancer at age 41. Family history of breast cancer in maternal aunt at age 64. Benign excisional biopsy of the left breast, 1987. Benign excisional biopsy of the left breast, 1986. Took hormonal contraceptives for 3 years. Took estrogen for 6 months. Physical Findings: A clinical breast exam by your physician is recommended on an annual basis and results should be correlated with mammographic findings. MG 3D Screening Mammo W/Cad Bilateral CC and MLO view(s) were taken. Prior study comparison: November 25, 2020, bilateral MG 3d screening mammo w/cad. September 21, 2019, bilateral MG 3d screening mammo w/cad. There are scattered fibroglandular densities. There are benign appearing vascular calcifications bilaterally. There is chronic nodularity in the right breast. There is no discrete abnormality. ASSESSMENT: Benign, BI-RAD 2 RECOMMENDATION: Routine screening mammogram of both breasts in 1 year.
== END | disposition home or self-care (01) ==
LOC: RADMAMWWP 07:22
PROVIDERS: ATTEND Family Medicine
DX: Z12.31 Encounter for screening mammogram for malignant neoplasm of breast (principal); Z78.0 Asymptomatic menopausal state; Z80.3 Family history of malignant neoplasm of breast
CPT/HCPCS: 77063; 77067

== ENCOUNTER → 2022-01-19 | Day surgery (SDC) | payer BC ==
[2022-01-16 08:49] VITALS: BMI 21.6
[~2022-01-19] MED LIST changes: -HYDROmorphone 0.5 MG/0.5 ML SYRINGE IVP PRN; +LACTATED RINGERS 1,000 ML IV ONE; +LIDOCAINE 1% (10MG/ML) FOR IV START INTRADERMA PRN; -ONDANSETRON 4 MG/2 ML VIAL IVP ONE; +PROPOFOL 10 MG/ML 20 ML VIAL IV ONE; -fentaNYL (PF) 50 MCG/ML 2 ML AMP IV PRN
[2022-01-19 11:11] VITALS: RESP 16
[2022-01-19 11:29] VITALS: BP 130/78; PULSE 69
--- NOTE | 2022-01-19 15:11 | P.GSHP ---
History of Present Illness H&P Date: 01/19/22 Chief Complaint: Screening colonoscopy This a 51-year-old female been safe for screening colonoscopy. Patient denies a significant GI complaints. Past Medical History Past Medical History: Osteoarthritis (OA) Additional Past Medical History / Comment(s): migraines (has daith piercing both ears), celiac disease, heart murmur. History of Any Multi-Drug Resistant Organisms: None Reported Past Surgical History: Bladder Surgery, Hernia Repair, Hysterectomy, Orthopedic Surgery, Tubal Ligation Additional Past Surgical History / Comment(s): Repair of bladder after hysterectomy, D&C, cysts removed from left breast, cysts removed from both wrists, sinus surgery, cruz myringotomy, right rotator cuff repair x2. L knee surgery. Past Anesthesia/Blood Transfusion Reactions: Malignant Hyperthermia Additional Past Anesthesia/Blood Transfusion Reaction / Comment(s): Woke up x 1 during surgery. Smoking Status: Never smoker - Past Family History Mother Family Medical History: No Reported History Medications and Allergies Home Medications Medication Instructions Recorded Confirmed Type Lisdexamfetamine Dimesylate 40 mg PO QAM 09/28/17 01/16/22 History [Vyvanse] Acetaminophen Tab [Tylenol] 325 - 650 mg PO DIRECTED PRN 12/23/20 12/25/20 History Allergies Allergy/AdvReac Type Severity Reaction Status Date / Time gluten Allergy celiac Verified 01/16/22 08:37 disease ibuprofen [From Motrin] Allergy Anaphylaxis Verified 01/16/22 08:37 Iodinated Contrast Media Allergy Rash/Hives,states Verified 01/16/22 08:37 [Iodinated Contrast Media - "topical IV Dye] is ok" coconut Allergy Anaphylaxis Uncoded 01/16/22 08:37 Surgical - Exam Vital Signs Pulse Resp BP Pulse Ox 88 16 122/70 100 01/19/22 11:06 01/19/22 11:06 01/19/22 11:06 01/19/22 11:06 - General well developed, well nourished, no distress - Eyes PERRL - ENT normal pinna - Neck no masses - Respiratory normal expansion - Cardiovascular Rhythm: regular - Abdomen Abdomen: soft, non tender Assessment and Plan Assessment: We'll perform screening colonoscopy
--- NOTE | 2022-01-19 15:13 | P.OP ---
Date of Procedure: 01/19/22 Preoperative Diagnosis: Screening colonoscopy Postoperative Diagnosis: Rectal polyp Procedure(s) Performed: Colonoscopy Anesthesia: MAC Surgeon: Kirk Masterson Pathology: other (Rectal polyp) Condition: stable Disposition: PACU Description of Procedure: The patient's placed on the endoscopy table in the lateral position. She received IV sedation. The digital rectal exam is performed which revealed no ebonized. The flexible colonoscope was then placed patient anus passed throughout the entire colon. The ileocecal valve was visualized. The cecum, ascending and transverse colon appeared normal. The descending and sigmoid colon appeared normal. Scope was brought back the rectum and there was a small rectal polyp seen was removed with the snare. The remainder the rectum appeared normal. Scope withdrawn for patient.
== END | disposition home or self-care (01) ==
LOC: ORWHC2ENDO 09:18
PROVIDERS: ATTEND Surgery
DX: Z12.11 Encounter for screening for malignant neoplasm of colon (principal); M19.90 Unspecified osteoarthritis, unspecified site; F90.9 Attention-deficit hyperactivity disorder, unspecified type; G43.909 Migraine, unspecified, not intractable, without status migrainosus; K90.0 Celiac disease; R01.1 Cardiac murmur, unspecified; Z98.890 Other specified postprocedural states; Z90.710 Acquired absence of both cervix and uterus; Z98.51 Tubal ligation status; Z79.899 Other long term (current) drug therapy; Z91.041 Radiographic dye allergy status; Z88.8 Allergy status to other drugs, medicaments and biological substances; Z91.018 Allergy to other foods
CPT/HCPCS: 88305; 45385; J2704

== ENCOUNTER → 2023-03-19 | Outpatient (CLI) | payer BC ==
--- NOTE | 2023-03-22 06:13 | MM ---
Reason for Exam: Screening (asymptomatic). Last mammogram was performed 1 year(s) and 3 month(s) ago. Patient History: Menarche at age 15. First Full-Term at age 21. Left ovary removed at age 31. Hysterectomy at age 31. Postmenopausal. Other cancer, age 41. Estrogen for 6 months. Patient used Hormonal Contraceptives for 3 years. 1987, Benign Excisional Biopsy on the left side. 1986, Benign Excisional Biopsy on the left side. Maternal aunt had breast cancer, age 64. Maternal aunt had breast cancer, age 68. Risk Values: Tanya 5 year model risk: 1.2%. NCI Lifetime model risk: 10.7%. Prior Study Comparison: 09/21/2019 Bilateral Screening Mammogram, [facility]. 11/25/2020 Bilateral Screening Mammogram, [facility]. 12/16/2021 Bilateral Screening Mammogram, [facility]. Tissue Density: There are scattered fibroglandular densities. Findings: Analyzed By CAD. There is no suspicious group of microcalcifications or new suspicious mass in either breast. Stable chronic nodularity within the right breast. Benign-appearing vascular calcifications bilaterally. Overall Assessment: Benign, BI-RAD 2 Management: Screening Mammogram of both breasts in 1 year. A clinical breast exam by your physician is recommended on an annual basis and results should be correlated with mammographic findings. Note on Tanya scores and lifetime risk: 1. A Tanya score greater than 3% is considered moderate risk. If this is the case, consider specialist referral to assess eligibility for a risk reducing agent. If overall lifetime risk for the development of breast cancer is 20% or higher, the patient may qualify for future screening with alternating mammogram and breast MRI. Electronically signed and approved by: Roni Narvaez D.O.
== END | disposition home or self-care (01) ==
LOC: RADMAMWWP 09:04
PROVIDERS: ATTEND Family Medicine
DX: Z12.31 Encounter for screening mammogram for malignant neoplasm of breast (principal); Z78.0 Asymptomatic menopausal state; Z80.3 Family history of malignant neoplasm of breast
CPT/HCPCS: 77063; 77067

== ENCOUNTER → 2023-07-15 | Outpatient (CLI) | payer BC ==
[2023-07-15 16:39] LABS: Basophils # (A) 0.07 X 10*3/uL (0.00-0.10); Basophils % (A) 1.3 %; Eosinophils # (A) 0.13 X 10*3/uL (0.04-0.35); Eosinophils % (A) 2.5 %; HCT 43.1 % (37.2-46.3); HGB 13.9 d/dL (12.0-15.0); Lymphocytes # (A) 1.94 X 10*3/uL (0.90-5.00); MCH 29.4 pg (27.0-32.0); MCHC 32.3 d/dL (32.0-37.0); MCV 91.1 FL (80.0-97.0); Monocytes # (A) 0.34 X 10*3/uL (0.20-1.00); Monocytes % (A) 6.5 %; NRBC Per 100 WBC 0 X 10*3/uL (0.00-0.01); Neutrophils # (A) 2.75 X 10*3/uL (1.80-7.70); Neutrophils % (A) 52.5 %; Platelet Count 352 X 10*3/uL (140-440); RBC 4.73 X 10*6/uL (4.10-5.20); WBC 5.24 X 10*3/uL (4.50-10.00)
[2023-07-15 18:32] LABS: Potassium 5.2 mmol/L (3.5-5.5)
== END | disposition home or self-care (01) ==
LOC: LABPAT 09:11
PROVIDERS: ATTEND Orthopaedic Surgery
DX: Z01.818 Encounter for other preprocedural examination (principal); M23.92 Unspecified internal derangement of left knee
CPT/HCPCS: 80051; 85025; 93005

== ENCOUNTER 2023-07-28 10:49 | Day surgery (SDC) | payer BC ==
--- NOTE | 2023-07-27 14:08 | HP ---
HISTORY AND PHYSICAL DATE OF SCHEDULED SURGERY: 07/28/2023. HISTORY OF PRESENT ILLNESS: Radha Canela is a 52-year-old patient seen with progressive left knee pain. We discussed options for treatment. She elected to proceed with left knee arthroscopy. Consent is obtained. PAST MEDICAL HISTORY: Noncontributory. SURGICAL HISTORY: D and C, tubal ligation, hysterectomy, knee arthroscopy, and shoulder arthroscopy. DAILY MEDICATIONS: Vyvanse, Aleve. ALLERGIES: Ibuprofen, iodine. SOCIAL HISTORY: She denies tobacco use. PHYSICAL EVALUATION OF LEFT KNEE: Range of motion is negative 2 to 110 degrees. Mild effusion. Tenderness to medial joint line. Positive medial Leydi's. Ligaments stable. Hip rotation without pain. Distal neurovascular exam is intact. RADIOGRAPHS: Radiographs of the left knee revealed mild osteoarthritis. MRI left knee revealed medial meniscal tear, effusion, and popliteal cyst. IMPRESSION: Internal derangement of left knee with medial meniscal tear. PLAN: Left knee arthroscopy with partial medial meniscectomy and debridement. MMODL / IJN: [id number] /
[~2023-07-28 10:49] MED LIST changes: +DEXAMETHASONE SOD PHOSPHATE 4 MG/ML 1 ML VIAL IV ONE; +HYDROmorphone 0.5 MG/0.5 ML SYRINGE IVP PRN; -LACTATED RINGERS 1,000 ML IV ONE; +ONDANSETRON 4 MG/2 ML VIAL IVP ONE; -PROPOFOL 10 MG/ML 20 ML VIAL IV ONE; +droPERidol 5 MG/2 ML VIAL IVP ONE
[2023-07-28] MEDS ORDERED: ONDANSETRON 4 MG/2 ML VIAL IVP ONE (11:29)
[2023-07-28] MEDS ORDERED: DEXAMETHASONE SOD PHOSPHATE 4 MG/ML 1 ML VIAL IVP ONE (11:30)
[2023-07-28] MEDS ORDERED: LIDOCAINE 1% INJ 10MG/ML (20 ML MDV) ONE (11:48)
[2023-07-28] MEDS ORDERED: fentaNYL (PF) 50 MCG/ML 2 ML AMP ONE (11:48)
[2023-07-28] MEDS ORDERED: PROPOFOL 10 MG/ML 20 ML VIAL IV ONE (11:48)
[2023-07-28] MEDS ORDERED: MIDAZOLAM 2 MG/2 ML VIAL ONE (11:48)
[2023-07-28] MEDS ORDERED: BUPIVACAINE (PF) 0.25% 30 ML VIAL SQ ONE ×2 (11:50→12:15)
--- NOTE | 2023-07-28 12:34 | P.OP ---
Date of Procedure: 07/28/23 Preoperative Diagnosis: Internal derangement left knee Postoperative Diagnosis: 1. Tear medial meniscus left knee 2. Reactive synovitis medial, lateral and suprapatellar compartments left knee 3. Grade 2 chondromalacia medial femoral condyle left knee Procedure(s) Performed: 1. Arthroscopic partial medial meniscectomy left knee 2. Arthroscopic partial synovectomy medial, lateral and suprapatellar compartments left knee 3. Arthroscopic chondroplasty medial femoral condyle left knee Anesthesia: MIANA, local Surgeon: Lyndon Villeda Estimated Blood Loss (ml): 6 Pathology: none sent Condition: stable Disposition: PACU Indications for Procedure: 52-year-old patient seen with progressive left knee pain. After having treatment options discussed, she elected to proceed with arthroscopy. Operative Findings: See description of procedure Description of Procedure: Patient was taken to the operative suite. Patient underwent a general anesthetic by the department of anesthesia. Patient was given preoperative antibiotics. The left lower extremity was placed in a well-padded arthroscopic leg reyes. The left leg was prepped and draped in the normal sterile orthopedic fashion. A lateral parapatellar and suprapatellar incision was made. Trochars were inserted. Arthroscopy was initiated. Suprapatellar pouch revealed diffuse thick reactive synovitis. The patellofemoral joint appeared to articulate congruently. There was grade 1 chondromalacia of the patella without osteochondral tears. The scope was guided into the medial gutter. No loose bodies or plica were identified. The scope was then guided into the medial compartment. A medial parapatellar incision was made. Trocar inserted followed by probe. There was a tear involving the posterior horn of the medial meniscus. There were areas of grade 2 chondromalacia medial femoral condyle with osteochondral flap tear present. There was thick reactive synovitis anteriorly. I performed a partial medial meniscectomy getting down to stable meniscal tissue. I performed a chondroplasty of the medial femoral condyle getting down to stable osteochondral tissue. I performed a partial synovectomy decompressing the thick reactive synovitis anteriorly. The residual meniscus was probed and was found to be stable. The residual osteochondral surface was stable. There was good decompression of the synovitis. Scope and probe were then guided into the intercondylar notch. Cruciates were identified, probed and found to be stable. The scope and probe were then guided into lateral compartment. Lateral meniscus was probed and was found to be stable. There was no chondromalacia involving lateral compartment. There was some thick reactive synovitis anteriorly. I performed a partial synovectomy. The shaver was removed. There was good decompression of the synovitis lateral compartment. The scope was in guided back into the suprapatellar compartment. I introduced a motorized shaver into the suprapatellar compartment. I performed a partial synovectomy. Shaver was now removed. There was good decompression of the synovitis. I took one more look around the entire knee, no residual debris. Instruments were now removed from the joint. The joint was infiltrated with .25% Marcaine. Steri- Strips were applied to the portal sites. Sterile dressings were applied. The patient was placed into a ARDEN hose. No tourniquet was utilized. The patient was awakened, transferred to a bed and taken to recovery stable satisfactory condition.
[2023-07-28 13:00] VITALS: TEMP 97.6
[2023-07-28 13:55] VITALS: RESP 20
[2023-07-28 14:26] VITALS: BP 138/74; PULSE 66
== END 2023-07-28 14:09 | disposition home or self-care (01) ==
LOC: OR 10:49
PROVIDERS: ATTEND Orthopaedic Surgery
DX: S83.242A Other tear of medial meniscus, current injury, left knee, initial encounter (principal); X58.XXXA Exposure to other specified factors, initial encounter; M22.42 Chondromalacia patellae, left knee; M65.88 Other synovitis and tenosynovitis, other site; M23.92 Unspecified internal derangement of left knee; M17.12 Unilateral primary osteoarthritis, left knee; M25.462 Effusion, left knee; M71.22 Synovial cyst of popliteal space [Baker], left knee; G43.909 Migraine, unspecified, not intractable, without status migrainosus; F90.9 Attention-deficit hyperactivity disorder, unspecified type; K63.9 Disease of intestine, unspecified; K21.9 Gastro-esophageal reflux disease without esophagitis; Z90.710 Acquired absence of both cervix and uterus; Z98.51 Tubal ligation status; Z98.890 Other specified postprocedural states; Z88.6 Allergy status to analgesic agent; Z88.8 Allergy status to other drugs, medicaments and biological substances; Z79.1 Long term (current) use of non-steroidal anti-inflammatories (NSAID); Z79.899 Other long term (current) drug therapy; Z91.041 Radiographic dye allergy status
CPT/HCPCS: 29881; 29876; J2250; J1100; J2405; J0690; J2001; J3010; J2704; J0665

== ENCOUNTER → 2024-03-20 | Outpatient (CLI) | payer BC ==
--- NOTE | 2024-03-21 10:41 | MM ---
Reason for Exam: Screening (asymptomatic). Last screening mammogram was performed 12 month(s) ago. Patient History: Menarche at age 15. First Full-Term at age 21. Left ovary removed at age 31. Hysterectomy at age 31. Postmenopausal. Other cancer, age 41. Estrogen for 6 months. Patient used Hormonal Contraceptives for 3 years. 1987, Benign Excisional Biopsy on the left side. 1986, Benign Excisional Biopsy on the left side. Maternal aunt had breast cancer, age 64. Maternal aunt had breast cancer, age 68. Risk Values: Tanya 5 year model risk: 1.3%. NCI Lifetime model risk: 10.5%. Prior Study Comparison: 11/25/2020 Bilateral Screening Mammogram, [facility]. 12/16/2021 Bilateral Screening Mammogram, [facility]. 03/19/2023 Bilateral MG 3D screening mammo w/cad, [facility]. Tissue Density: The breasts are almost entirely fatty. Findings: Analyzed By CAD. Right breast: There is no suspicious group of microcalcifications or new suspicious mass. Left breast: There is no suspicious group of microcalcifications or new suspicious mass. Overall Assessment: Negative, BI-RAD 1 Management: Screening Mammogram of both breasts in [address] [facility] will attempt to contact patient to return for supplemental views and ultrasound if indicated. Patient should continue monthly self-breast exams. A clinical breast exam by your physician is recommended on an annual basis. This exam should not preclude additional follow-up of suspicious palpable abnormalities. Note on Tanya scores and lifetime risk: 1. A Tanya score greater than 3% is considered moderate risk. If this is the case, consider specialist referral to assess eligibility for a risk reducing agent. 2. If overall lifetime risk for the development of breast cancer is 20% or higher, the patient may qualify for future screening with alternating mammogram and breast MRI. Electronically signed and approved by: Bernabe Phelan DO
== END | disposition home or self-care (01) ==
LOC: RADMAMWWP 09:39
PROVIDERS: ATTEND Family Medicine
DX: Z12.31 Encounter for screening mammogram for malignant neoplasm of breast (principal); Z78.0 Asymptomatic menopausal state; Z80.3 Family history of malignant neoplasm of breast
CPT/HCPCS: 77063; 77067

== ENCOUNTER → 2025-04-03 | Outpatient (CLI) | payer BC ==
--- NOTE | 2025-04-04 07:15 | MM ---
Reason for Exam: Screening (asymptomatic). Last mammogram was performed 1 year(s) and 1 month(s) ago. Patient History: Menarche at age 15. First Full-Term at age 21. Left ovary removed at age 31. Hysterectomy at age 31. Postmenopausal. Other cancer, age 41. Estrogen for 6 months. Patient used Hormonal Contraceptives for 3 years. 1987, Benign Excisional Biopsy on the left side. 1986, Benign Excisional Biopsy on the left side. Maternal aunt had breast cancer, age 64. Maternal aunt had breast cancer, age 68. Risk Values: Tanya 5 year model risk: 1.3%. NCI Lifetime model risk: 10.3%. Prior Study Comparison: 12/16/2021 Bilateral Screening Mammogram, [facility]. 03/19/2023 Bilateral MG 3D screening mammo w/cad, [facility]. 03/20/2024 Bilateral MG 3D screening mammo w/cad, [facility]. Tissue Density: There are scattered areas of fibroglandular density. Findings: Analyzed By CAD. Right-sided arterial vascular calcification is redemonstrated. There is no suspicious group of microcalcifications or new suspicious mass in either breast. Overall Assessment: Negative, BI-RAD 1 Management: Screening Mammogram of both breasts in 1 year. . Patient should continue monthly self-breast exams. A clinical breast exam by your physician is recommended on an annual basis. This exam should not preclude additional follow-up of suspicious palpable abnormalities. Note on Tanya scores and lifetime risk: 1. A Tanya score greater than 3% is considered moderate risk. If this is the case, consider specialist referral to assess eligibility for a risk reducing agent. 2. If overall lifetime risk for the development of breast cancer is 20% or higher, the patient may qualify for future screening with alternating mammogram and breast MRI. [facility], , 04/04/2025 7:12 AM. Electronically signed and approved by: Erik Cassidy M.D.
== END | disposition home or self-care (01) ==
LOC: RADMAMWWP 16:03
PROVIDERS: ATTEND Family Medicine
DX: Z12.31 Encounter for screening mammogram for malignant neoplasm of breast (principal); R92.323 Mammographic fibroglandular density, bilateral breasts; Z80.3 Family history of malignant neoplasm of breast; Z78.0 Asymptomatic menopausal state; Z92.0 Personal history of contraception
CPT/HCPCS: 77063; 77067